=== PATIENT | female | born 1960 | race Caucasian/White ===

== ENCOUNTER → 2024-07-05 09:33 | Outpatient (REF) | payer OTHER, SELFPAY | LOC: RAD 09:33 | PROVIDERS: ATTENDING PHYSICIAN Family Medicine | DX: Z78.0 Asymptomatic menopausal state (principal) | CPT/HCPCS: 77080 ==

== ENCOUNTER → 2024-10-04 11:56 | Outpatient (REF) | payer OTHER, SELFPAY | LOC: WDC 11:56 | PROVIDERS: ATTENDING PHYSICIAN Obstetrics & Gynecology | DX: Z12.31 Encounter for screening mammogram for malignant neoplasm of breast (principal) | CPT/HCPCS: 77063; 77067 ==

== ENCOUNTER → 2024-10-10 13:34 | Outpatient (REF) | payer OTHER, SELFPAY | LOC: REG 13:34 | PROVIDERS: ATTENDING PHYSICIAN Family Medicine; FAMILY PHYSICIAN Family Medicine | DX: J40 Bronchitis, not specified as acute or chronic (principal) | CPT/HCPCS: 71046 ==

== ENCOUNTER → 2024-10-24 07:04 | Outpatient (REF) | payer OTHER, SELFPAY | LOC: RAD 07:04 | PROVIDERS: ATTENDING PHYSICIAN Family Medicine; FAMILY PHYSICIAN Family Medicine | DX: R91.1 Solitary pulmonary nodule (principal) | CPT/HCPCS: 71270; Q9967 ==

== ENCOUNTER 2025-01-02 10:53 | Outpatient (RCR) | payer OTHER, SELFPAY | END 2025-01-02 23:59 | disposition home or self-care (01) | LOC: RPT 10:53 | PROVIDERS: ATTENDING PHYSICIAN Orthopaedic Surgery; FAMILY PHYSICIAN Family Medicine | DX: S83.52 Sprain of posterior cruciate ligament of knee (principal); M17.12 Unilateral primary osteoarthritis, left knee; X58.XXXS Exposure to other specified factors, sequela; Z73.6 Limitation of activities due to disability | CPT/HCPCS: 97110; 97162 ==

== ENCOUNTER 2025-01-16 13:56 | Outpatient (RCR) | payer OTHER, SELFPAY | END 2025-01-16 15:14 | disposition home or self-care (01) | LOC: RPT 13:56 | PROVIDERS: ATTENDING PHYSICIAN Orthopaedic Surgery; FAMILY PHYSICIAN Family Medicine | DX: S83.52 Sprain of posterior cruciate ligament of knee (principal); M17.12 Unilateral primary osteoarthritis, left knee; X58.XXXS Exposure to other specified factors, sequela; Z73.6 Limitation of activities due to disability | CPT/HCPCS: 97110 ==

== ENCOUNTER → 2025-03-01 13:58 | Outpatient (REF) | payer OTHER, SELFPAY | LOC: RAD 13:58 | PROVIDERS: ATTENDING PHYSICIAN Family Medicine; FAMILY PHYSICIAN Family Medicine | DX: R93.89 Abnormal findings on diagnostic imaging of other specified body structures (principal) | CPT/HCPCS: 71270; Q9967 ==

== ENCOUNTER → 2025-07-25 09:32 | Outpatient (REF) | payer OTHER, SELFPAY | LOC: RAD 09:32 | PROVIDERS: ATTENDING PHYSICIAN Internal Medicine; FAMILY PHYSICIAN Family Medicine | DX: R91.8 Other nonspecific abnormal finding of lung field (principal); J94.8 Other specified pleural conditions | CPT/HCPCS: 71250 ==